=== PATIENT | female | born 1945 | race Caucasian/White ===

== ENCOUNTER → 2017-11-12 | Outpatient (CLI) | payer MEDICARE, OTHER ==
--- NOTE | 2017-11-12 10:58 | FL ---
EXAMINATION TYPE: FL barium swallow DATE OF EXAM: 11/12/2017 CLINICAL HISTORY: History of esophageal surgery for gastroesophageal reflux, possible Sheila fundopli cation, in 2001. Recurrence of burning sensation and choking sensation. TECHNIQUE: A single contrast esophagram is performed utilizing air and barium. A total of 2 minutes of fluoroscopic time was utilized during procedure with 78 images saved. COMPARISON: None FINDINGS: The esophagus shows normal delayed motility and delayed emptying into the stomach secondary to a stricture at the gastroesophageal junction. No recurrent or residual hiatal hernia is identifie d. Stricture is moderate in degree with eventual passage of contrast despite dilation of the proxima l and midesophagus and intraesophageal moderate reflux. Tertiary contractions and blunting of the sec ondary contractions are noted on the gravity independent portion of the examination. No significant g astroesophageal reflux was seen during real time performance of this study. 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 No recurrent or residual hiatal hernia seen.
== END ==
LOC: RADFLWHC 09:11
PROVIDERS: ATTEND Surgery
DX: K21.9 Gastro-esophageal reflux disease without esophagitis (principal); Z98.890 Other specified postprocedural states
CPT/HCPCS: 74220

== ENCOUNTER → 2017-11-14 | Outpatient (CLI) | payer MEDICARE, OTHER ==
--- NOTE | 2017-11-14 14:54 | US ---
EXAMINATION TYPE: US gallbladder DATE OF EXAM: 11/14/2017 COMPARISON: NONE CLINICAL HISTORY: K80.10 Cholelithiasis w/ Chronic Cystitis. EXAM MEASUREMENTS: Liver Length: 14.1cm Gallbladder Wall: 0.2 cm CBD: 0.5 cm Right Kidney: 10.5 x 4.0 x 4.6 cm Pancreas: Tail obscured by overlying bowel gas Liver: wnl Gallbladder: wnl Evidence for sonographic Moody's sign: no CBD: wnl Right Kidney: No hydronephrosis or masses seen IMPRESSION: 1. Visualized right upper quadrant ultrasound is unremarkable
== END | disposition home or self-care (01) ==
LOC: RADUSWWP 12:01
PROVIDERS: ATTEND Surgery
DX: K80.10 Calculus of gallbladder with chronic cholecystitis without obstruction (principal)
CPT/HCPCS: 76705

== ENCOUNTER 2017-12-01 10:25 | Day surgery (SDC) | payer MEDICARE, OTHER ==
[2017-11-28 11:32] VITALS: BMI 29.4
[~2017-12-01 10:25] MED LIST: LACTATED RINGERS 1,000 ML IV SCH
[2017-12-01 11:00] VITALS: TEMP 98.1
[2017-12-01] MEDS ORDERED: LIDOCAINE 1% 20 ML VIAL (10MG/ML) FOR IV START INTRADERMA ONE (11:09)
[2017-12-01] MEDS ORDERED: LIDOCAINE 1% INJ 10MG/ML (20 ML MDV) ONE (12:22)
[2017-12-01] MEDS ORDERED: PROPOFOL 10 MG/ML 20 ML VIAL IV ONE (12:22)
--- NOTE | 2017-12-01 12:34 | P.GSHP ---
History of Present Illness H&P Date: 12/01/17 Chief Complaint: GERD This a 72-year-old female with history of GERD. Patient presents today for EGD. Past Medical History Past Medical History: GERD/Reflux, Hyperlipidemia, Hypertension Additional Past Medical History / Comment(s): intermittent dysphagia recently, woke up few times gagging & choking on acid History of Any Multi-Drug Resistant Organisms: None Reported Additional Past Surgical History / Comment(s): hiatal hernia repair, cervical fusion Past Anesthesia/Blood Transfusion Reactions: No Reported Reaction Smoking Status: Never smoker - Past Family History Sister(s) Family Medical History: Cancer Medications and Allergies Home Medications Medication Instructions Recorded Confirmed Type Losartan-Hctz 50-12.5 mg [Hyzaar 1 each PO DAILY 11/28/17 12/01/17 History 50-12.5] Omeprazole [PriLOSEC] 20 mg PO AC-BRKFST 11/28/17 11/28/17 History Ranitidine HCl [Zantac] 150 mg PO HS 11/28/17 11/28/17 History Simvastatin [Zocor] 20 mg PO HS 11/28/17 11/28/17 History Allergies Allergy/AdvReac Type Severity Reaction Status Date / Time No Known Allergies Allergy Verified 12/01/17 10:53 Surgical - Exam Vital Signs Temp Pulse Resp BP Pulse Ox 98.1 F 96 18 144/82 97 12/01/17 10:57 12/01/17 10:57 12/01/17 10:57 12/01/17 10:57 12/01/17 10:57 Assessment and Plan Assessment: GERD. We'll perform EGD.
--- NOTE | 2017-12-01 12:42 | P.OP ---
Date of Procedure: 12/01/17 Preoperative Diagnosis: GERD Postoperative Diagnosis: Antral gastritis Possible slipped fundoplication Mild esophagitis Procedure(s) Performed: EGD Anesthesia: MAC Surgeon: Alexander Alanis Pathology: other (Antrum, esophagus) Condition: stable Disposition: PACU Description of Procedure: The patient's placed on the endoscopy table lateral position. She received IV sedation. The gastroscope placed oropharynx passed in the esophagus into the stomach. Scope was then placed through the pylorus. The first and second portion of the duodenum. Scope was brought back the antrum this. Mildly inflamed. A biopsies performed. Scope was then retroflexed and the remainder of the stomach appeared normal. The patient had a previous fundoplication. The fundoplication appeared to be below the GE junction. The GE junction was at 40 cm. The distal esophagus. Minimal inflamed a biopsies performed. The proximal esophagus appeared normal. Scope withdrawn for patient.
[2017-12-01 12:47] VITALS: RESP 16
[2017-12-01 13:15] VITALS: BP 137/78; PULSE 82
== END 2017-12-01 14:16 | disposition home or self-care (01) ==
LOC: ORWHC2ENDO 10:25
PROVIDERS: ATTEND Surgery
DX: K29.50 Unspecified chronic gastritis without bleeding (principal); K22.70 Barrett's esophagus without dysplasia; K21.0 Gastro-esophageal reflux disease with esophagitis; E78.5 Hyperlipidemia, unspecified; I10 Essential (primary) hypertension; Z79.899 Other long term (current) drug therapy
CPT/HCPCS: 88305; 43239; J2001; J2704

== ENCOUNTER → 2017-12-15 | Outpatient (CLI) | payer MEDICARE, OTHER ==
[2017-12-15 11:40] LABS: Basophils % (A) 1 %; Eosinophils # (A) 0.1 k/uL (0-0.7); Eosinophils % (A) 1 %; HCT 39.7 % (34.0-46.0); HGB 12.4 gm/dL (11.4-16.0); Hypochromasia Slight; Lymphocytes # (A) 3.1 k/uL (1.0-4.8); Lymphocytes % (A) 40 %; MCH 24.6 pg (25.0-35.0); MCHC 31.3 g/dL (31.0-37.0); MCV 78.8 fL (80.0-100.0); Mean Platelet Volume 7.5; Monocytes # (A) 0.4 k/uL (0-1.0); Monocytes % (A) 5 %; Neutrophils # (A) 3.9 k/uL (1.3-7.7); Neutrophils % (A) 51 %; Platelet Count 287 k/uL (150-450); RBC 5.03 m/uL (3.80-5.40); WBC 7.7 k/uL (3.8-10.6)
== END | disposition home or self-care (01) ==
LOC: LABPAT 10:59
PROVIDERS: ATTEND Surgery
DX: Z01.812 Encounter for preprocedural laboratory examination (principal); R13.19 Other dysphagia; K21.0 Gastro-esophageal reflux disease with esophagitis; D64.9 Anemia, unspecified; F17.200 Nicotine dependence, unspecified, uncomplicated
CPT/HCPCS: 36415; 85025

== ENCOUNTER 2017-12-19 07:52 | Day surgery (SDC) | payer MEDICARE, OTHER ==
[2017-12-11 15:28] VITALS: BMI 28.1
[~2017-12-19 07:52] MED LIST changes: +DEXAMETHASONE SOD PHOSPHATE 10 MG/ML 1 ML VIAL IV ONE; +HEPARIN SODIUM,PORCINE 5,000 UNIT/ML 1 ML VIAL SQ ONE; +LIDOCAINE 1% 20 ML VIAL (10MG/ML) FOR IV START INTRADERMA PRN; +MIDAZOLAM 2 MG/2 ML VIAL IV PRN; +MORPHINE SULFATE 4 MG/ML SYRINGE IV PRN; +ONDANSETRON 4 MG/2 ML VIAL IVP ONE; +SCOPOLAMINE 1.5MG/72HR PATCH TRANSDERM ONE; +ceFAZolin IN SWFI 2 GM/20 ML SYRINGE IVP ONE
[2017-12-19] MEDS ORDERED: LACTATED RINGERS 1,000 ML IV ONE ×2 (08:27→10:27)
--- NOTE | 2017-12-19 08:47 | P.GSHP ---
History of Present Illness H&P Date: 12/19/17 Chief Complaint: GERD This a 72-year-old female referred from Dr. Murphy Jurado. MThe patient has had long-standing problems with reflux esophagitis. The patient underwent recent EGD is found have evidence of esophagitis. Patient has been well informed on the procedure of laparoscopic Sheila fundoplication. The patient is aware the risk of the conversion to the open procedure, risk of injury to the stomach, liver and spleen. The patient is also a risk of recurrent GERD and dysphagia symptoms. The patient understands there is a postoperative diet of full liquids for 2 weeks after surgery. Past Medical History Past Medical History: GERD/Reflux, Hyperlipidemia, Hypertension Additional Past Medical History / Comment(s): intermittent dysphagia recently, woke up few times gagging & choking on acid History of Any Multi-Drug Resistant Organisms: None Reported Additional Past Surgical History / Comment(s): hiatal hernia repair, cervical fusion, right breast biopsy. Past Anesthesia/Blood Transfusion Reactions: No Reported Reaction Past Psychological History: No Psychological Hx Reported Smoking Status: Never smoker Past Alcohol Use History: Rare Past Drug Use History: None Reported - Past Family History Sister(s) Family Medical History: Cancer Medications and Allergies Home Medications Medication Instructions Recorded Confirmed Type Losartan-Hctz 50-12.5 mg [Hyzaar 1 each PO QAM 11/28/17 12/11/17 History 50-12.5] Omeprazole [PriLOSEC] 20 mg PO AC-BRKFST 11/28/17 12/11/17 History Ranitidine HCl [Zantac] 150 mg PO HS 11/28/17 12/11/17 History Simvastatin [Zocor] 20 mg PO HS 11/28/17 12/11/17 History Allergies Allergy/AdvReac Type Severity Reaction Status Date / Time No Known Allergies Allergy Verified 12/11/17 15:12 Surgical - Exam Vital Signs Temp Pulse Resp BP Pulse Ox 98.0 F 79 18 142/69 97 12/19/17 08:12 12/19/17 08:12 12/19/17 08:12 12/19/17 08:12 12/19/17 08:12 - General well developed, no distress - Eyes PERRL - ENT normal pinna - Neck no masses - Respiratory normal expansion - Cardiovascular Rhythm: regular - Abdomen Abdomen: soft, non tender Assessment and Plan Assessment: GERD. We'll perform laparoscopic Sheila fundal plication.
[2017-12-19] MEDS ORDERED: ePHEDrine SULFATE/0.9% NACL/PF 50 MG/5 ML SYRINGE IV ONE (09:16)
[2017-12-19] MEDS ORDERED: SUCCINYLCHOLINE CHLORIDE 100 MG/5 ML SYR IV ONE (09:16)
[2017-12-19] MEDS ORDERED: fentaNYL (PF) 50 MCG/ML 2 ML AMP ONE (09:16)
[2017-12-19] MEDS ORDERED: LIDOCAINE 1% INJ 10MG/ML (20 ML MDV) ONE (09:16)
[2017-12-19] MEDS ORDERED: GLYCOPYRROLATE 0.2 MG/ML 2 ML VIAL ONE (09:16)
[2017-12-19] MEDS ORDERED: ROCURONIUM BROMIDE 10 MG/ML 10 ML VIAL IV ONE (09:16)
[2017-12-19] MEDS ORDERED: MIDAZOLAM 2 MG/2 ML VIAL ONE (09:16)
[2017-12-19] MEDS ORDERED: PROPOFOL 10 MG/ML 20 ML VIAL IV ONE (09:16)
[2017-12-19] MEDS ORDERED: NEOSTIGMINE 1 MG/ML 10 ML VIAL ONE (09:16)
[2017-12-19] MEDS ORDERED: BUPIVACAINE (PF) 0.25% 30 ML VIAL SQ ONE (09:38)
--- NOTE | 2017-12-19 11:25 | P.OP ---
Date of Procedure: 12/19/17 Preoperative Diagnosis: GERD Postoperative Diagnosis: Large recurrent hiatal hernia Procedure(s) Performed: Laparoscopic lysis of adhesions Laparoscopic Sheila fundal plication with mesh repair of diaphragmatic hernia Anesthesia: MAR Surgeon: Alexander Alanis Estimated Blood Loss (ml): 20 Pathology: none sent Condition: stable Disposition: PACU Description of Procedure: The patient was placed on the operating table in the supine position. She received general anesthesia. She was then placed in dorsal lithotomy position. Her abdomen was prepped and draped in the usual sterile fashion. The skin incision sites were anesthetized with 1% local Xylocaine. The skin was incised in the left periumbilical area with an 11 scalpel. Using a 5 mm blade was trocar under direct visitation the peritoneal cavity was entered. And then insufflated. After adequate insufflation the laparoscope was placed back into the peritoneal cavity. Next a 5 mm trocar was placed in the right epigastric and then the right lateral position. Another 5 mm trochars placed in the left lateral position. Another 5 mm trocar placed in the left epigastric position. And the original left periumbilical trocar was exchanged for a 10 mm trocar. The left lateral lobe liver was retracted. The patient had a large recurrent hiatal hernia. Using the Harmonic scissors the crural defect and adhesions were lysed. was dissected in the Harmonic scissors were used to dissect the hiatal hernia sac. The fundus of the stomach was completely mobilized by using the Harmonic scissors to divide short gastric vessels. The stomach was reduced into the peritoneal cavity. The crura was dissected with the Harmonic scissors. And then the crural repair was performed using 2-0 Ethibond suture. The Villanueva bio A mesh was then placed over top of the repair and secured with 2-0 Ethibond suture. Next a 58-Argentine bougie dilator was placed the patient's oral pharynx and into the esophagus into the stomach by the CHEMIST ENZYMES. The fundoplication was then performed using 2-0 Ethibond suture. A 180 fundoplication was performed. At this point the dilator was withdrawn. The stomach and esophagus were inspected there is known to any injury to the stomach or esophagus. The abdomen was irrigated there is no bleeding seen. The trochars are withdrawn. Skin was closed interrupted 3-0 Monocryl suture. Dermabond was applied. Patient tolerated procedure well and was sent to recovery in stable condition.
[2017-12-19] MEDS: D5-0.45% NACL WITH KCL 20MEQ/L 1,000 ML IV SCH ×3 (12:36→21:27)
[2017-12-19] MEDS ORDERED: MORPHINE SULFATE 4 MG/ML SYRINGE IVP PRN (15:16)
[2017-12-19] MEDS: MORPHINE SULFATE 4 MG/ML SYRINGE IVP PRN (21:26)
--- NOTE | 2017-12-19 21:29 | XR ---
EXAMINATION TYPE: XR chest 1V DATE OF EXAM: 12/19/2017 COMPARISON: UGI same day HISTORY: Assess 1 hour post contrast upper GI. TECHNIQUE: AP upright portable FINDINGS: There is moderate oral contrast opacification within a distended distal thoracic esophagus, down to the gastroesophageal junction. There is mild contrast opacification within the room day of the stomach body. There are no incidental findings. IMPRESSION: 1 HOUR POST UPPER GI ORAL CONTRAST OPACIFICATION PATTERN ABOVE.
[2017-12-20] MEDS: D5-0.45% NACL WITH KCL 20MEQ/L 1,000 ML IV SCH (05:49)
[2017-12-20] MEDS: MORPHINE SULFATE 4 MG/ML SYRINGE IVP PRN ×2 (05:49→08:57)
--- NOTE | 2017-12-20 08:11 | CONS ---
CONSULTATION DATE OF SERVICE: 12/19/2017. REASON FOR CONSULTATION: Advice regarding hypertension, hyperlipidemia requested by Dr. Alanis. HISTORY OF PRESENT ILLNESS: This 72-year-old woman with a past history hypertension, hyperlipidemia, DJD, GERD being followed by Dr. Jurado in the outpatient setting underwent a laparoscopic Sheila fundoplication with mesh repair of the diaphragmatic hernia by Dr. Alanis for GERD. There is no history of fever, rigors. No history of headache, loss of consciousness, seizures. Postoperatively the patient has complaints of pain and dysphagia. There is no history of fever, rigors or chills. PAST MEDICAL HISTORY: History of GERD, hypertension, hyperlipidemia, intermittent dysphagia. MEDICATIONS: 1. Zocor 20 mg q.h.s. 2. Zantac 150 mg daily. 3. Prilosec 20 mg. 4. Losartan hydrochlorothiazide 1 p.o. q.a.m. 5. Ione 1 p.o. q.4. 6. Colace 100 mg b.i.d. ALLERGIES: None. FAMILY HISTORY: History of cancer in the family. SOCIAL HISTORY: No history of smoking, occasional alcohol. REVIEW OF SYSTEMS: ENT: As mentioned earlier. CARDIOVASCULAR: No angina. RESPIRATORY: No cough or hemoptysis. GI: As mentioned earlier. : No dysuria. NERVOUS SYSTEM: No numbness or weakness. ALLERGY/IMMUNOLOGY: No asthma. MUSCULOSKELETAL: As mentioned earlier. HEMATOLOGY/ONCOLOGY: No history of anemia. ENDOCRINE: No history of hypothyroidism and diabetes. CONSTITUTIONAL: As mentioned earlier. DERMATOLOGY: Negative. RHEUMATOLOGY: Negative. PSYCHIATRY: As mentioned earlier. PHYSICAL EXAM: Alert, oriented x3. Pulse 81, blood pressure 120/87, respirations 16, temperature 98.9, pulse ox 98% on 2 L. HEENT: Conjunctivae normal. Oral mucosa moist. Neck is no jugular venous distention. No carotid bruit. No lymph node enlargement. CARDIOVASCULAR: S1, S2. RESPIRATORY: Breath sounds diminished in the bases. No rhonchi, no crackles. ABDOMEN: Soft, status post surgery. LEGS: No edema. NERVOUS SYSTEM: Higher functions as mentioned earlier, moves all 4 limbs, no focal motor deficits. LYMPHATICS: No lymphadenopathy in the neck, axillae, groin. SKIN: No ulcer, rash or bleeding. LABS: CBC and BMP within normal limits which is done preop. LDL is 111. ASSESSMENT: 1. Status post laparoscopic Sheila fundoplication with mesh repair of diaphragmatic hernia for gastroesophageal reflux disease. 2. History of hypertension. 3. History of hyperlipidemia. 4. History of gastroesophageal reflux disease. 5. History of hiatal hernia repair. RECOMMENDATIONS AND DISCUSSION: This 72-year-old woman who presented with multiple medical issues, at this time I recommend blood pressure has been to be fairly monitored and maintained at this time. I recommend incentive spirometry, DVT prophylaxis. I would also resume the p.o. medications once the patient is p.o. Otherwise we will follow the patient closely and the patient will be asked to follow with Dr. Jurado closely after discharge. Thank you, Dr. Alanis, for letting us participate in the care of this patient. PETER / AUSTINN: [id number] /
[2017-12-20] MEDS: ENOXAPARIN 40 MG/0.4 ML SYRINGE SQ SCH (08:57)
--- NOTE | 2017-12-20 10:33 | P.PN ---
Progress Note - Text Progress Note Date: 12/20/17 The patient has some complaints of mild dysphagia. She's had poor oral intake this morning. She has complaints of shoulder pain On exam her vital signs are stable. Her abdomen soft. Status post repair of recurrent hiatal hernia. Patient had significant postoperative edema. Patient will repeat her esophagram in the a.m.
--- NOTE | 2017-12-20 15:32 | PN ---
PROGRESS NOTE DATE OF SERVICE: 12/20/2017. INTERVAL HISTORY: This 72-year-old woman who was admitted after laparoscopic Shelia fundoplication is being closely monitored. No chest pain. No palpitations. No fever. The patient is complaining of some mild dysphagia. No chest pain. No palpitations. No fever. EXAM: Alert, oriented x3. Pulse 79, blood pressure 136/69, respirations 17, temperature 98 degrees, pulse ox 98% on room air. HEENT: Conjunctivae normal. NECK: No JVD. CARDIOVASCULAR: S1 and S2 muffled. LUNGS: Breath sounds diminished at the bases. No rhonchi, no crackles. ABDOMEN: Soft, status post surgery. EXTREMITIES: Legs no edema. LABS: Not available. ASSESSMENT: 1. Status post laparoscopic Sheila fundoplication with mesh repair of diaphragmatic hernia for gastroesophageal reflux disease. 2. History of hypertension. 3. History of hyperlipidemia. 4. History of gastroesophageal reflux disease. 5. History of hiatal hernia repair. RECOMMENDATIONS: Recommend to continue current medications and symptomatic treatment. Incentive spirometry. DVT prophylaxis. Closely follow with surgery. Further recommendations to follow. MMODL / IJN: [id number] /
[2017-12-20] MEDS: ACETAMINOPHEN ORAL SUSP 160 MG/5 ML CUP PO PRN (17:44)
[2017-12-21] MEDS: D5-0.45% NACL WITH KCL 20MEQ/L 1,000 ML IV SCH (00:30)
[2017-12-21] MEDS: ACETAMINOPHEN ORAL SUSP 160 MG/5 ML CUP PO PRN (06:43)
[2017-12-21] MEDS: ENOXAPARIN 40 MG/0.4 ML SYRINGE SQ SCH (09:39)
--- NOTE | 2017-12-21 11:12 | P.PN ---
Progress Note - Text Progress Note Date: 12/21/17 The patient feels better today. Her abdominal and shoulder pain has improved. She is tolerating clear liquids overnight. She denies any nausea or vomiting. On exam her vital signs stable. Her abdomen soft. Patiently discharged home today. We plan on a another esophagram to evaluate her postoperative edema. She'll be discharged home and follow-up in 2 weeks.
--- NOTE | 2017-12-21 11:13 | P.DS ---
Providers Date of admission: 12/19/2017 Expected date of discharge: 12/21/17 Attending physician: Alexander Alanis Consults: 12/19/17 11:21 Consult Physician Routine Consulting Provider: Juanpablo Cook Consult Reason/Comments: Medical coverage from Dr. Jurado Do you want consulting provider notified?: Yes Primary care physician: Murphy Jurado [facility] Hospital Course: This is a 72-year-old female who underwent laparoscopic repair of recurrent hiatal hernia. Please see chart for details. Procedures: Laparoscopic recurrent hiatal hernia Patient Condition at Discharge: Good Plan - Discharge Summary Discharge Rx Participant: No New Discharge Prescriptions: New Docusate [Colace] 100 mg PO BID #20 capsule HYDROcodone/APAP 7.5-325MG [Lyford 7.5] 1 each PO Q4H PRN #30 tab PRN Reason: Pain No Action Simvastatin [Zocor] 20 mg PO HS Ranitidine HCl [Zantac] 150 mg PO HS Losartan-Hctz 50-12.5 mg [Hyzaar 50-12.5] 1 each PO QAM Omeprazole [PriLOSEC] 20 mg PO AC-BRKFST Discharge Medication List Losartan-Hctz 50-12.5 mg [Hyzaar 50-12.5] 1 each PO QAM 11/28/17 [History] Omeprazole [PriLOSEC] 20 mg PO AC-BRKFST 11/28/17 [History] Ranitidine HCl [Zantac] 150 mg PO HS 11/28/17 [History] Simvastatin [Zocor] 20 mg PO HS 11/28/17 [History] Docusate [Colace] 100 mg PO BID #20 capsule 12/19/17 [Rx] HYDROcodone/APAP 7.5-325MG [Lyford 7.5] 1 each PO Q4H PRN #30 tab 12/19/17 [Rx] Follow up Appointment(s)/Referral(s): Alexander Alanis MD [STAFF PHYSICIAN] - 2 Weeks
[2017-12-21 12:17] VITALS: BP 161/84; PULSE 79; RESP 18; TEMP 98.1
[2017-12-21] MEDS ORDERED: LOSARTAN-HCTZ 50-12.5 MG 1 EACH TAB PO SCH (12:45)
--- NOTE | 2017-12-21 13:12 | PN ---
PROGRESS NOTE DATE OF SERVICE: 12/21/2017. INTERVAL HISTORY: This 72-year-old woman was admitted after laparoscopic Sheila fundoplication is being closely monitored. No chest pain. No palpitations. No fever. Blood pressure slightly elevated. EXAM: Alert and oriented x3. Pulse 79, blood pressure 161/84, respiration 18, temperature 98.1, pulse ox 94% on room air. HEENT: Conjunctivae normal. NECK: No jugular venous distention. CARDIOVASCULAR: S1, S2 muffled. RESPIRATORY: Breath sounds diminished at the bases. No rhonchi, no crackles. ABDOMEN: Soft, status post surgery. LEGS: No edema. NERVOUS SYSTEM: No focal deficits. LABS: Not available. ASSESSMENT: 1. Status post laparoscopic Sheila fundoplication with mesh repair of diaphragmatic hernia for gastroesophageal reflux disease. 2. History hypertension. 3. Hyperlipidemia. 4. History of gastroesophageal reflux disease. 5. History of hiatal hernia repair. RECOMMENDATION AND DISCUSSION: I recommend to continue current management and symptomatic treatment. At this time I recommend resume the Hyzaar and closely monitor. Closely follow with Dr. Murphy Jurado. The rest of the recommendations per Surgery. MMODL / IJN: [id number] /
--- NOTE | 2017-12-21 14:53 | FL ---
EXAMINATION TYPE: FL UGI w esophagus DATE OF EXAM: 12/19/2017 COMPARISON: NONE HISTORY: Post Sheila fundoplication. TECHNIQUE: A single contrast UGI study is performed. MIN 43SEC FLUORO, 25 CC OMNI 350 UTILIZED. 5 fl uoroscopic images were saved. FINDINGS: The patient swallowed contrast without difficulty. Esophageal peristalsis and motility ar e within normal limits. There is absent flow of contrast along the diaphragmatic hiatus into the stom ach despite prolonged examination time and administration of water, there is no evidence of contrast extravasation to suggest leak. No persistent hiatal hernia is seen. IMPRESSION: Severe stenosis at the gastroesophageal junction with absent flow contrast through the ga stroesophageal junction may relate to postoperative edema. No evidence of leak.
== END 2017-12-21 13:14 | disposition home or self-care (01) ==
LOC: OR 07:52 → 6PED 10:52 → OR 12-21 13:14
PROVIDERS: ATTEND Surgery
DX: K21.9 Gastro-esophageal reflux disease without esophagitis (principal); K44.9 Diaphragmatic hernia without obstruction or gangrene; E78.5 Hyperlipidemia, unspecified; I10 Essential (primary) hypertension; M19.90 Unspecified osteoarthritis, unspecified site; Z79.899 Other long term (current) drug therapy
CPT/HCPCS: 43280; 94760; 74240; 71045; C1781; J2250; J2270 ×2; J1644; J1100; J2710; Q9967; J2405; J2001; J1650 ×2; J3010; J0330; J2704; J0690; 86850; 86900; 86901; 93005

== ENCOUNTER → 2018-05-11 | Outpatient (CLI) | payer MEDICARE, OTHER ==
--- NOTE | 2018-05-11 18:02 | FL ---
EXAMINATION: Double contrast upper GI examination DATE OF EXAM: 05/11/2018 CLINICAL INDICATION: 72-year-old female with GERD, history of Sheila fundoplication 4 months ago. COMPARISON: 12/19/2017 Total Fluoroscopy Time: 2 minutes 14 seconds. Total images: 43 FINDINGS: The swallowing mechanism is normal and hypopharyngeal anatomy is preserved. The cervical and thoracic portions have a normal course and caliber and normal motility. The mucosa is normal and no persistent filling defect is encountered. There is a small sliding hiatal hernia. No Sheila wrap is clearly identified. There is severe spontaneous gastroesophageal reflux when the patient is brought supine. The amount or reflux dilates the esophagus and extends to the thoracic inlet. Limited distention of the stomach as the patient had trouble containing the air contrast. There is so me retained ingested debris within the stomach as the patient was brought back for further imaging of the stomach. No large filling defect is identified. There is suggestion of mild diffuse fold thicken ing. The first and second portions of the duodenum are visualized and appear within normal limits. IMPRESSION: 1. Small sliding hiatal hernia. The Sheila wrap is not clearly identified. 2. Severe spontaneous gastroesophageal reflux when the patient is brought supine. 3. Limited distention of the stomach limits its evaluation. No large filling defect is seen. There is suggestion of mild diffuse fold thickening that could represent chronic gastritis.
== END | disposition home or self-care (01) ==
LOC: RADFLWHC 08:30
PROVIDERS: ATTEND Surgery
DX: K21.9 Gastro-esophageal reflux disease without esophagitis (principal); K44.9 Diaphragmatic hernia without obstruction or gangrene
CPT/HCPCS: 74246

== ENCOUNTER 2018-05-12 07:23 | Day surgery (SDC) | payer MEDICARE, OTHER ==
[2018-05-07 15:44] VITALS: BMI 28.1
[~2018-05-12 07:23] MED LIST changes: -DEXAMETHASONE SOD PHOSPHATE 10 MG/ML 1 ML VIAL IV ONE; -HEPARIN SODIUM,PORCINE 5,000 UNIT/ML 1 ML VIAL SQ ONE; -LIDOCAINE 1% 20 ML VIAL (10MG/ML) FOR IV START INTRADERMA PRN; -MIDAZOLAM 2 MG/2 ML VIAL IV PRN; -MORPHINE SULFATE 4 MG/ML SYRINGE IV PRN; -ONDANSETRON 4 MG/2 ML VIAL IVP ONE; -SCOPOLAMINE 1.5MG/72HR PATCH TRANSDERM ONE; -ceFAZolin IN SWFI 2 GM/20 ML SYRINGE IVP ONE
[2018-05-12] MEDS ORDERED: LIDOCAINE 1% 20 ML VIAL (10MG/ML) FOR IV START INTRADERMA ONE (07:56)
[2018-05-12 08:00] VITALS: TEMP 98.2
[2018-05-12] MEDS ORDERED: PROPOFOL 10 MG/ML 20 ML VIAL IV ONE (08:46)
[2018-05-12] MEDS ORDERED: GLYCOPYRROLATE 0.2 MG/ML 2 ML VIAL ONE (08:46)
[2018-05-12] MEDS ORDERED: LIDOCAINE 1% INJ 10MG/ML (20 ML MDV) ONE (08:46)
--- NOTE | 2018-05-12 08:54 | P.GSHP ---
History of Present Illness H&P Date: 05/12/18 Chief Complaint: GERD, screening colonoscopy This a 72-year-old female who presents today for EGD and screening colonoscopy. Patient's had issues with GERD. Her recent esophagram shows evidence of a recurrent sliding hiatal hernia and evidence of reflux on esophagram. Past Medical History Past Medical History: GERD/Reflux, Hyperlipidemia, Hypertension Additional Past Medical History / Comment(s): HX Intermittent dysphagia, woke up few times gagging & choking on acid - HAD LAP SAPPHIRE 12/2017, SYMPTOMS REOCCURRING WITHIN 1 MO. History of Any Multi-Drug Resistant Organisms: None Reported Past Surgical History: Breast Surgery, Hernia Repair Additional Past Surgical History / Comment(s): hiatal hernia repair 2001, Cervical Fusion, Right breast biopsy. EGD, COLONOSCOPY. LAP SAPPHIRE W/ MESH REPAIR DIAPHRAGMATIC HERNIA 12/2017. Past Anesthesia/Blood Transfusion Reactions: No Reported Reaction Smoking Status: Never smoker - Past Family History Sister(s) Family Medical History: Cancer Medications and Allergies Home Medications Medication Instructions Recorded Confirmed Type Losartan-Hctz 50-12.5 mg [Hyzaar 1 each PO QAM 11/28/17 05/12/18 History 50-12.5] Omeprazole [PriLOSEC] 20 mg PO AC-BRKFST 11/28/17 05/12/18 History Ranitidine HCl [Zantac] 150 mg PO HS 11/28/17 05/12/18 History Simvastatin [Zocor] 20 mg PO HS 11/28/17 05/12/18 History Aspirin [Adult Low Dose Aspirin EC] 81 mg PO DAILY 05/07/18 05/12/18 History Iron 47.5 mg PO AUGUSTIN 05/07/18 05/12/18 History Allergies Allergy/AdvReac Type Severity Reaction Status Date / Time No Known Allergies Allergy Verified 05/07/18 15:18 Surgical - Exam Vital Signs Temp Pulse Resp BP Pulse Ox 98.2 F 91 16 113/72 94 L 05/12/18 07:59 05/12/18 07:59 05/12/18 07:59 05/12/18 07:59 05/12/18 07:59 - General well developed, no distress - Eyes PERRL - ENT normal pinna - Neck no masses - Respiratory normal expansion - Cardiovascular Rhythm: regular - Abdomen Abdomen: soft, non tender Assessment and Plan Assessment: GERD. We'll perform EGD. We'll also perform screening colonoscopy.
[2018-05-12] MEDS ORDERED: IV FLUID CONTINUATION 1,000 ML IV ONE (09:08)
--- NOTE | 2018-05-12 09:09 | P.OP ---
Date of Procedure: 05/12/18 Preoperative Diagnosis: GERD Screening colonoscopy Postoperative Diagnosis: Normal colon Antral gastritis Small sliding hiatal hernia Procedure(s) Performed: EGD Colonoscopy Anesthesia: MAC Surgeon: Alexander Alanis Pathology: none sent (Antrum) Condition: stable Disposition: PACU Description of Procedure: The patient's placed on the endoscopy table in the lateral position. She received IV sedation. Digital rectal exam was performed which revealed no abnormalities. Flexible colonoscope was then placed patient anus passed throughout the entire colon. The ileocecal valve was visualized. There was a large amount of liquid barium in the colon which limited the view of the close. The cecum, ascending and transverse colon appeared normal. Scope was brought back in the descending and sigmoid colon this appeared normal. Scope was withdrawn for patient. Next the gastroscope placed oropharynx and passed in the esophagus and into the stomach. Scope was then placed through the pylorus. The first and second portion of the duodenum appeared normal. Scope was then brought back the antrum and this appeared mildly inflamed. A biopsies performed. The scope was then retroflexed and the remainder of the stomach appeared normal. There was a small sliding hiatal hernia. The GE junction was at 37 cm. The distal esophagus appeared normal. The proximal esophagus appeared normal. Scope was withdrawn for patient.
[2018-05-12 09:26] VITALS: BP 127/72; PULSE 75; RESP 18
== END 2018-05-12 09:40 | disposition home or self-care (01) ==
LOC: ORWHC2ENDO 07:23
PROVIDERS: ATTEND Surgery
DX: Z12.11 Encounter for screening for malignant neoplasm of colon (principal); K21.9 Gastro-esophageal reflux disease without esophagitis; K29.50 Unspecified chronic gastritis without bleeding; K44.9 Diaphragmatic hernia without obstruction or gangrene; I10 Essential (primary) hypertension; E78.5 Hyperlipidemia, unspecified; Z79.82 Long term (current) use of aspirin; Z79.899 Other long term (current) drug therapy; Z98.1 Arthrodesis status; Z80.9 Family history of malignant neoplasm, unspecified
CPT/HCPCS: 43239; 88305; G0121; J2001; J2704

== ENCOUNTER → 2018-11-10 | Outpatient (CLI) | payer MEDICARE, OTHER ==
--- NOTE | 2018-11-10 14:44 | XR ---
EXAMINATION TYPE: XR chest 2V DATE OF EXAM: 11/10/2018 COMPARISON: 12/19/2017 INDICATION: Left chest wall pain TECHNIQUE: Frontal and lateral views of the chest are obtained. FINDINGS: The heart size is normal. The pulmonary vasculature is normal. The lungs are clear. Subtle scoliosis thoracic spine with convexity to the right midportion. IMPRESSION: 1. No acute pulmonary process.
== END | disposition home or self-care (01) ==
LOC: RADXRMAIN 09:19
PROVIDERS: ATTEND Family Medicine
DX: R07.89 Other chest pain (principal)
CPT/HCPCS: 71046

== ENCOUNTER → 2020-11-27 | Outpatient (CLI) | payer MEDICARE, OTHER ==
[2020-11-27 11:45] LABS: Anisocytosis Slight; HCT 35.8 % (34.0-46.0); HGB 10.9 gm/dL (11.4-16.0); Hypochromasia Marked; MCHC 30.4 g/dL (31.0-37.0); MCV 75.8 fL (80.0-100.0); Mean Platelet Volume 6.9; Microcytosis Slight; Platelet Count 251 k/uL (150-450); RBC 4.72 m/uL (3.80-5.40); RDW 17.3 % (11.5-15.5); WBC 7.9 k/uL (3.8-10.6)
[2020-11-27 11:53] LABS: African American GFR (CKD) >90 (>60 ml/min/1.73 sqM); Anion Gap 8 mmol/L; Blood Urea Nitrogen 14 mg/dL (7-17); Carbon Dioxide 26 mmol/L (22-30); Chloride 104 mmol/L (98-107); Non-African American GFR(CKD) 85 (>60 ml/min/1.73 sqM); Sodium 138 mmol/L (137-145)
[2020-11-27 11:54] LABS: Potassium 3.8 mmol/L (3.5-5.1)
== END | disposition home or self-care (01) ==
LOC: LABPAT 10:38
PROVIDERS: ATTEND Internal Medicine Interventional Cardiology
DX: Z01.818 Encounter for other preprocedural examination (principal); R07.9 Chest pain, unspecified
CPT/HCPCS: 36415; 80051; 82565; 84520; 85027

== ENCOUNTER 2020-12-11 07:56 | Day surgery (SDC) | payer MEDICARE, OTHER ==
[2020-12-04 16:16] VITALS: BMI 27.3
[~2020-12-11 07:56] MED LIST changes: +ALPRAZolam 0.25 MG TAB PO PRN; +ALPRAZolam 0.5 MG TAB PO PRN; +ASPIRIN 325 MG TAB PO ONE; +ATORVASTATIN 80 MG TAB PO ONE; -LACTATED RINGERS 1,000 ML IV SCH; +NITROGLYCERIN SL TABS 0.4 MG TAB SUBLINGUAL PRN; +SODIUM CHLORIDE 0.9% 1,000 ML in EMPTY BAG 1 BAG IV ONE
[2020-12-11] MEDS ORDERED: SODIUM CHLORIDE 0.9% 1,000 ML IV ONE (08:24)
[2020-12-11 08:25] VITALS: TEMP 97.1
[2020-12-11] MEDS ORDERED: VERAPAMIL 2.5 MG/ML 2 ML AMP ONE (08:36)
[2020-12-11] MEDS ORDERED: LIDOCAINE 1% INJ 10MG/ML (20 ML MDV) ONE (08:36)
[2020-12-11] MEDS ORDERED: HEPARIN SODIUM 1,000 UN/ML (10ML VL) ONE (08:50)
[2020-12-11] MEDS ORDERED: fentaNYL (PF) 50 MCG/ML 2 ML AMP ONE (08:50)
[2020-12-11] MEDS ORDERED: fentaNYL (PF) 50 MCG/ML 2 ML AMP IVP ONE (09:09)
[2020-12-11] MEDS ORDERED: LIDOCAINE 1% INJ 10MG/ML (20 ML MDV) SQ ONE (09:12)
[2020-12-11] MEDS ORDERED: VERAPAMIL SYRINGE (5 MG/10 ML) INTRAARTER ONE (09:13)
[2020-12-11] MEDS ORDERED: HEPARIN SODIUM 1,000 UN/ML (10ML VL) IV ONE (09:17)
[2020-12-11] MEDS ORDERED: IOPAMIDOL-370 125ML BTL INJ ONE (09:23)
[2020-12-11] MEDS ORDERED: RX INFO: IV CONTRAST WAS GIVEN 1 EACH MISC MISCELLANE PRN (09:37)
[2020-12-11 09:44] VITALS: RESP 16
[2020-12-11] MEDS ORDERED: SODIUM CHLORIDE 0.9% 1,000 ML IV SCH (09:45)
--- NOTE | 2020-12-11 10:45 | CC ---
CARDIAC CATHETERIZATION REPORT Mrs. Dempsey is a 75-year-old female with known history of hypertension and hyperlipidemia who has been complaining of exertional chest discomfort and dyspnea on exertion. She underwent a myocardial perfusion imaging that revealed no evidence of inducible ischemia, but persisted to having discomfort that increased in frequency. In view of that, recommendation was made regarding cardiac catheterization. The procedures, risks, and complication were discussed with the patient who is in full understanding and agreement. PROCEDURE: Patient was brought to the collaborative teacher in the fasting semi-sedated state after receiving fentanyl and Benadryl and achieving moderate conscious sedated state. Using Xylocaine anesthesia and Seldinger technique, a 6-Irish sheath was introduced in the right radial artery. Selective right and left coronary angiography performed using 5-Irish 3.5 bend right and left Crescencio catheter. Multiple views of the coronary artery including hemiaxial views were obtained. Following that, 5-Irish tight pigtail catheter was introduced in the left ventricle and pressures were calculated. Following that, catheter and sheath were removed. Hemostasis was obtained with deployment of a TR band. There was no immediate complication. Patient was returned to her room in stable condition. Of note, the patient received 4000 units of intravenous heparin as well as intra- arterial verapamil. FINDINGS: LEFT MAIN: This is a large-sized vessel. Trifurcating left circumflex, left anterior descending artery and ramus intermedius. Left main coronary artery has no evidence of high-grade stenosis. LEFT ANTERIOR DESCENDING ARTERY: This vessel tapers down on the distal third. It gives rise to a large size diagonal branch. The left anterior descending artery has mild plaque proximally 10% to 20%. The rest of the vessel has no high-grade stenosis. RAMUS INTERMEDIUS: This is a large size vessel reaching to the apical lateral wall. The ramus intermedius has no evidence of high-grade stenosis. LEFT CIRCUMFLEX: This is a nondominant vessel giving rise to a large obtuse marginal branch. The left circumflex as well as branches have no evidence of obstructive coronary artery disease. RIGHT CORONARY ARTERY: This is a large dominant vessel bifurcating distally PDA and posterolateral segment and branches. The right PDA reaches to the inferoapical wall. The right coronary artery in mid segment has a 10% plaque. The rest of the vessel has no high-grade stenosis. LEFT VENTRICULOGRAM: Left ventriculogram was not performed. HEMODYNAMICS: There was no gradient across the aortic valve. The left end-diastolic pressure was 14- 16 mmHg. CONCLUSION: 1. Mild plaque in the proximal left anterior descending artery and right coronary artery. 2. Right dominance. RECOMMENDATION: In view of finding anatomy, I recommend continue medical therapy with aggressive coronary risk modifications being initiated. Those findings and recommendations were discussed with the patient and her family who are in full understanding and agreement. Duration of sedation is 14 minutes. MMODL / IJN: [id number] /
--- NOTE | 2020-12-11 10:51 | LTR ---
December 11, 2020 Re: Génesis Dempsey Dear Dr. Jurado: I had the opportunity to perform cardiac catheterization on Mrs. Dempsey at [facility] on the 11 of December and a full copy of the procedure note will be forwarded to you. In brief, she was found to have mild intimal disease in the proximal LAD and mid right coronary artery without any evidence of high-grade stenosis and based on those findings, I recommend to continue medical therapy with the aggressive coronary risk modifications being initiated. Thank you again for allowing me the opportunity to participate in her care. Please feel free to call for any questions. Sincerely yours, MD PETER Brito / [place]IN[place]: [id number] /
[2020-12-11 13:10] VITALS: BP 109/57; PULSE 60
[2020-12-11] MEDS ORDERED: PANTOPRAZOLE 40 MG TABLET PO SCH (18:30)
[2020-12-11] MEDS ORDERED: ATORVASTATIN 10 MG TAB PO SCH (21:00)
[2020-12-12] MEDS ORDERED: LOSARTAN-HCTZ 50-12.5 MG 1 EACH TAB PO SCH (09:00)
[2020-12-12] MEDS ORDERED: ISOSORBIDE MONONITRATE ER 15 MG TAB PO SCH (09:00)
[2020-12-12] MEDS ORDERED: ASPIRIN 81 MG PO SCH (09:00)
== END 2020-12-11 13:58 | disposition home or self-care (01) ==
LOC: CATHCVL 07:56
PROVIDERS: ATTEND Internal Medicine Interventional Cardiology
DX: I25.110 Atherosclerotic heart disease of native coronary artery with unstable angina pectoris (principal); I10 Essential (primary) hypertension; E78.00 Pure hypercholesterolemia, unspecified; E78.2 Mixed hyperlipidemia
CPT/HCPCS: 93458; C1769; C1894; J2001; J3010; J1644; Q9967

== ENCOUNTER 2020-12-28 08:33 | Day surgery (SDC) | payer MEDICARE, OTHER ==
[2020-12-26 11:17] VITALS: BMI 27.3
[~2020-12-28 08:33] MED LIST changes: -ALPRAZolam 0.25 MG TAB PO PRN; -ALPRAZolam 0.5 MG TAB PO PRN; -ASPIRIN 325 MG TAB PO ONE; -ATORVASTATIN 80 MG TAB PO ONE; +LACTATED RINGERS 1,000 ML IV SCH; +LIDOCAINE 1% (10MG/ML) FOR IV START INTRADERMA PRN; -NITROGLYCERIN SL TABS 0.4 MG TAB SUBLINGUAL PRN; -SODIUM CHLORIDE 0.9% 1,000 ML in EMPTY BAG 1 BAG IV ONE
[2020-12-28 09:32] VITALS: TEMP 97.8
[2020-12-28] MEDS ORDERED: PROPOFOL 10 MG/ML 20 ML VIAL IV ONE (09:58)
--- NOTE | 2020-12-28 10:00 | P.GSHP ---
History of Present Illness H&P Date: 12/28/20 Chief Complaint: Rectal bleeding This is a 75-year-old female who presents today for colonoscopy. She's had issues with rectal bleeding. Past Medical History Past Medical History: GERD/Reflux, Hyperlipidemia, Hypertension Additional Past Medical History / Comment(s): PAST HX INTERMITTENT DYSPHAGIA., HX OF HIATAL HERNIA WITH REPAIR X2, BACK PAIN., STATES RECENT BLOOD IN STOOL. History of Any Multi-Drug Resistant Organisms: None Reported Past Surgical History: Breast Surgery, Heart Catheterization, Hernia Repair Additional Past Surgical History / Comment(s): hiatal hernia repair 2001, Cervical Fusion, Right breast biopsy. EGD, COLONOSCOPY. LAP SAPPHIRE W/ MESH REPAIR DIAPHRAGMATIC HERNIA 12/2017. HEART CATH 12/11/20. Past Anesthesia/Blood Transfusion Reactions: No Reported Reaction Past Psychological History: No Psychological Hx Reported Smoking Status: Never smoker Past Alcohol Use History: Rare Past Drug Use History: None Reported - Past Family History Sister(s) Family Medical History: Cancer Additional Family Medical History / Comment(s): LUNG CANCER WITH METS Medications and Allergies Home Medications Medication Instructions Recorded Confirmed Type Losartan-Hctz 50-12.5 mg [Hyzaar 1 each PO QAM 11/28/17 12/26/20 History 50-12.5] Omeprazole [PriLOSEC] 40 mg PO PC-SUPPER 11/28/17 12/26/20 History Simvastatin [Zocor] 20 mg PO HS 11/28/17 12/26/20 History Aspirin [Adult Low Dose Aspirin EC] 81 mg PO DAILY 05/07/18 12/26/20 History Iron 25 mg PO MOWEFR 05/07/18 12/26/20 History Acetaminophen/Diphenhydramine 1 tab PO HS 12/04/20 12/26/20 History [Tylenol PM 500-25mg] Cholecalciferol [Vitamin D3 (25 25 mcg PO DAILY 12/04/20 12/26/20 History Mcg = 1000 Iu)] Melatonin 10 mg PO HS 12/04/20 12/26/20 History Allergies Allergy/AdvReac Type Severity Reaction Status Date / Time No Known Allergies Allergy Verified 12/26/20 10:56 Surgical - Exam Vital Signs Temp Pulse Resp BP Pulse Ox 97.8 F 87 18 163/68 97 12/28/20 09:29 12/28/20 09:29 12/28/20 09:29 12/28/20 09:29 12/28/20 09:29 - General well developed, well nourished, no distress - Eyes PERRL - ENT normal pinna - Neck no masses - Respiratory normal expansion - Cardiovascular Rhythm: regular - Abdomen Abdomen: soft, non tender Assessment and Plan Assessment: Rectal bleeding. We'll perform colonoscopy.
[2020-12-28] MEDS ORDERED: LACTATED RINGERS 1,000 ML IV ONE (10:09)
--- NOTE | 2020-12-28 10:11 | P.OP ---
Date of Procedure: 12/28/20 Preoperative Diagnosis: Rectal bleeding Postoperative Diagnosis: Internal and external hemorrhoids Severe diverticulosis Procedure(s) Performed: Colonoscopy Anesthesia: MAC Surgeon: Alexander Alanis Pathology: none sent Condition: stable Disposition: PACU Description of Procedure: The patient's placed on the endoscopy table in the lateral position. She received IV sedation. Digital rectal exam was performed which revealed internal/external hemorrhoids. The flexible colonoscope was then placed patient anus passed throughout the entire colon. The ileocecal valve was visualized. The cecum, ascending and transverse colon appeared normal. In the descending and; there is extensive diverticular changes. There was severe diverticulosis of the sigmoid colon. There is no unsteady bleeding in the colon. Scope was brought back the rectum this appeared normal. Scope withdrawn and internal and external hemorrhoids visualized. This presumed patient appears rectal bleeding was either from hemorrhoids or diverticulosis
[2020-12-28 10:28] VITALS: BP 124/64; PULSE 77; RESP 17
== END 2020-12-28 10:51 | disposition home or self-care (01) ==
LOC: ORWHC2ENDO 08:33
PROVIDERS: ATTEND Surgery
DX: K64.8 Other hemorrhoids (principal); K64.4 Residual hemorrhoidal skin tags; K62.5 Hemorrhage of anus and rectum; K57.30 Diverticulosis of large intestine without perforation or abscess without bleeding; E78.5 Hyperlipidemia, unspecified; E11.9 Type 2 diabetes mellitus without complications; F17.200 Nicotine dependence, unspecified, uncomplicated; Z79.84 Long term (current) use of oral hypoglycemic drugs; Z79.82 Long term (current) use of aspirin; Z79.899 Other long term (current) drug therapy; Z88.5 Allergy status to narcotic agent; Z88.8 Allergy status to other drugs, medicaments and biological substances
CPT/HCPCS: 45378; J2704

== ENCOUNTER → 2022-11-07 | Outpatient (CLI) | payer MEDICARE ==
--- NOTE | 2022-11-08 08:26 | MM ---
Reason for Exam: Screening (asymptomatic). Last mammogram was performed 9 year(s) and 9 month(s) ago. Patient History: Menarche at age 15. Patient has no children. Postmenopausal. Excisional Biopsy on the Right side. Risk Values: Jana 5 year model risk: 2.1%. NCI Lifetime model risk: 3.7%. Prior Study Comparison: 04/21/2002 Bilateral Screening Mammogram, [facility]. 06/16/2003 Bilateral Screening Mammogram, [facility]. 02/03/2013 Bilateral Screening Mammogram, [facility]. Tissue Density: The breast tissue is extremely dense which could obscure a lesion on mammography. Findings: Analyzed By CAD. Nodularity seen lower inner quadrants bilaterally. Additional views are recommended. Scattered punctate calcifications noted bilaterally. Overall Assessment: Incomplete: need additional imaging evaluation, BI-RAD 0 Management: Diagnostic Mammogram of both breasts. A clinical breast exam by your physician is recommended on an annual basis and results should be correlated with mammographic findings. Electronically signed and approved by: Jaya Osei M.D. Radiologis
== END | disposition home or self-care (01) ==
LOC: RADMAMWWP 10:49
PROVIDERS: ATTEND Family Medicine
DX: Z12.31 Encounter for screening mammogram for malignant neoplasm of breast (principal); Z78.0 Asymptomatic menopausal state; Z98.890 Other specified postprocedural states
CPT/HCPCS: 77063; 77067

== ENCOUNTER → 2023-11-14 | Outpatient (CLI) | payer MEDICARE ==
--- NOTE | 2023-11-17 19:23 | MM ---
Reason for Exam: Screening (asymptomatic). Last screening mammogram was performed 12 month(s) ago. Patient History: Menarche at age 15. Patient has no children. Postmenopausal. Excisional Biopsy on the Right side. Risk Values: Jana 5 year model risk: 2.0%. NCI Lifetime model risk: 3.4%. Prior Study Comparison: 02/03/2013 Bilateral Screening Mammogram, [facility]. 11/07/2022 Bilateral MG 3D screening mammo w/cad, [facility]. 11/13/2022 Bilateral MG 3D work up w/cad [facility]ON, [facility]. Tissue Density: The breast tissue is heterogeneously dense. This may lower the sensitivity of mammography. Findings: Analyzed By CAD. Chronic bilateral nodularity. Unchanged oil cyst calcification on the right. Bilateral regional punctate calcifications also remain unchanged. There is no suspicious group of microcalcifications or new suspicious mass in either breast. Overall Assessment: Benign, BI-RAD 2 Management: Screening Mammogram of both breasts in 1 year. . Patient should continue monthly self-breast exams. A clinical breast exam by your physician is recommended on an annual basis. This exam should not preclude additional follow-up of suspicious palpable abnormalities. Note on Jana scores and lifetime risk: 1. A Jana score greater than 3% is considered moderate risk. If this is the case, consider specialist referral to assess eligibility for a risk reducing agent. 2. If overall lifetime risk for the development of breast cancer is 20% or higher, the patient may qualify for future screening with alternating mammogram and breast MRI. Electronically signed and approved by: Amy Matt M.D. Radiologist
== END | disposition home or self-care (01) ==
LOC: RADMAMWWP 10:31
PROVIDERS: ATTEND Family Medicine
DX: Z12.31 Encounter for screening mammogram for malignant neoplasm of breast (principal); Z78.0 Asymptomatic menopausal state; Z80.3 Family history of malignant neoplasm of breast
CPT/HCPCS: 77063; 77067

== ENCOUNTER 2024-09-05 08:34 | Emergency (ER) | payer MEDICARE ==
[2024-09-05 08:41] VITALS: TEMP 97.6
[2024-09-05] MEDS: SODIUM CHLORIDE 0.9% 1,000 ML IV ONE (09:05)
--- NOTE | 2024-09-05 09:10 | ED ---
URI HPI - General Chief Complaint: Upper Respiratory Infection Stated Complaint: Congestion Time Seen by Provider: 09/05/24 08:40 Source: patient, RN notes reviewed Mode of arrival: ambulatory Limitations: no limitations - History of Present Illness Initial Comments: 79-year-old female presents emergency department chief complaint of cough and congestion x 1 week. Patient states started last Friday with mild sore throat and nasal congestion states has progressed throughout the week. She states that she has productive cough, states she has sinus pressure. Patient reports no fever denies any sick contacts denies any GI symptoms denies chest pain no dizziness no neck pain or neck stiffness. - Related Data Home Medications Medication Instructions Recorded Confirmed Losartan-Hctz 50-12.5 mg [Hyzaar 1 each PO QAM 11/28/17 12/26/20 50-12.5] Omeprazole [PriLOSEC] 40 mg PO PC-SUPPER 11/28/17 12/26/20 Simvastatin [Zocor] 20 mg PO HS 11/28/17 12/26/20 Aspirin [Adult Low Dose Aspirin EC] 81 mg PO DAILY 05/07/18 12/26/20 Iron 25 mg PO MOWEFR 05/07/18 12/26/20 Acetaminophen/Diphenhydramine 1 tab PO HS 12/04/20 12/26/20 [Tylenol PM 500-25mg] Cholecalciferol [Vitamin D3 (25 25 mcg PO DAILY 12/04/20 12/26/20 Mcg = 1000 Iu)] Melatonin [Melatonin Tr] 10 mg PO HS 12/04/20 12/26/20 Previous Rx's Medication Instructions Recorded Amoxic-Pot Clav 875-125Mg 1 tab PO Q12HR #20 tab 09/05/24 [Augmentin 875-125] Allergies Allergy/AdvReac Type Severity Reaction Status Date / Time No Known Allergies Allergy Verified 09/05/24 08:36 Review of Systems ROS Statement: Those systems with pertinent positive or pertinent negative responses have been documented in the HPI. ROS Other: All systems not noted in ROS Statement are negative. Past Medical History Past Medical History: GERD/Reflux, GI Bleed, Hyperlipidemia, Hypertension Additional Past Medical History / Comment(s): PAST HX INTERMITTENT DYSPHAGIA., HX OF HIATAL HERNIA WITH REPAIR X2, BACK PAIN., STATES RECENT BLOOD IN STOOL. History of Any Multi-Drug Resistant Organisms: None Reported Past Surgical History: Breast Surgery, Heart Catheterization, Hernia Repair Additional Past Surgical History / Comment(s): hiatal hernia repair 2002, Cervical Fusion, Right breast biopsy. EGD, COLONOSCOPY. LAP SAPPHIRE W/ MESH REPAIR DIAPHRAGMATIC HERNIA 12/2017. HEART CATH 12/11/20. Past Anesthesia/Blood Transfusion Reactions: No Reported Reaction Past Psychological History: No Psychological Hx Reported Smoking Status: Never smoker Past Alcohol Use History: Rare Past Drug Use History: None Reported - Past Family History Sister(s) Family Medical History: Cancer Additional Family Medical History / Comment(s): LUNG CANCER WITH METS General Exam Limitations: no limitations General appearance: alert, in no apparent distress Head exam: Present: atraumatic, normocephalic, normal inspection Eye exam: Present: normal appearance, PERRL, EOMI. Absent: scleral icterus, conjunctival injection, periorbital swelling ENT exam: Present: mucous membranes moist. Absent: normal exam, normal oropharynx (post Drainage) Neck exam: Present: normal inspection, full ROM. Absent: tenderness, meningismus, lymphadenopathy Respiratory exam: Present: normal lung sounds bilaterally. Absent: respiratory distress, wheezes, rales, rhonchi, stridor Cardiovascular Exam: Present: regular rate, normal rhythm, normal heart sounds. Absent: systolic murmur, diastolic murmur, rubs, gallop, clicks GI/Abdominal exam: Present: soft, normal bowel sounds. Absent: distended, tenderness, guarding, rebound, rigid Neurological exam: Present: alert, oriented X3, CN II-XII intact, reflexes normal. Absent: motor sensory deficit Skin exam: Present: warm, dry, intact, normal color. Absent: rash Course Vital Signs 09/05/24 09/05/24 08:36 10:02 Temperature 97.6 F Pulse Rate 119 H 87 Respiratory 22 18 Rate Blood Pressure 162/89 169/80 O2 Sat by Pulse 98 98 Oximetry Medical Decision Making - Medical Decision Making Was pt. sent in by a medical professional or institution (, PA, ELECTRICAL TECHNICIAN INSTRUCTOR, urgent care, hospital, or correction...) When possible be specific @ -No Did you speak to anyone other than the patient for history (EMS, parent, family, police, friend...)? What history was obtained from this source @ -No Did you review nursing and triage notes (agree or disagree)? Why? @ -I reviewed and agree with nursing and triage notes Were old charts reviewed (outside hosp., previous admission, EMS record, old EKG, old radiological studies, urgent care reports/EKG's, correction records)? Report findings @ -No old charts were reviewed Differential Diagnosis (chest pain, altered mental status, abdominal pain women, abdominal pain men, vaginal bleeding, weakness, fever, dyspnea, syncope, headache, dizziness, GI bleed, back pain, seizure, CVA, palpatations, mental health, musculoskeletal)? @ -COVID 19, RSV, influenza, pneumonia, acute bronchitis, URI, this list is not all inclusive EKG interpreted by me (3pts min.). @ -none X-rays interpreted by me (1pt min.). @ -Chest x-ray shows no definite infiltrate there is peribronchial changes noted CT interpreted by me (1pt min.). @ -None done U/S interpreted by me (1pt. min.). @ -None done What testing was considered but not performed or refused? (CT, X-rays, U/S, labs)? Why? @ -None What meds were considered but not given or refused? Why? @ -None Did you discuss the management of the patient with other professionals (professionals i.e. , PA, ELECTRICAL TECHNICIAN INSTRUCTOR, lab, RT, psych nurse, geriatric social worker, feather separator, teacher, chemistry technical officer, supervisor case loading)? Give summary @ -No Was smoking cessation discussed for >3mins.? @ -No Was critical care preformed (if so, how long)? @ -No Were there social determinants of health that impacted care today? How? (Homelessness, low income, unemployed, alcoholism, drug addiction, transporta tion, low edu. Level, literacy, decrease access to med. care, [facility], rehab)? @ -No Was there de-escalation of care discussed even if they declined (Discuss DNR or withdrawal of care, Hospice)? DNR status @ -No What co-morbidities impacted this encounter? (DM, HTN, Smoking, COPD, CAD, Cancer, CVA, ARF, Chemo, Hep., AIDS, mental health diagnosis, sleep apnea, morbid obesity)? @ -None Was patient admitted / discharged? Hospital course, mention meds given and route, prescriptions, significant lab abnormalities, going to OR and other pertinent info. @ -Discharge patient presented for URI symptoms x 1 week. Patient has acute tracheobronchitis. Patient treated with Augmentin. Patient was given Rocephin. She has no hypoxia tachycardia is improved after IV fluids. Return transfer discussed. Undiagnosed new problem with uncertain prognosis? @ -No Drug Therapy requiring intensive monitoring for toxicity (Heparin, Nitro, Insulin, Cardizem)? @ -No Were any procedures done? @ -No Diagnosis/symptom? @ -Acute tracheobronchitis Acute, or Chronic, or Acute on Chronic? @ -Acute Uncomplicated (without systemic symptoms) or Complicated (systemic symptoms)? @ -Uncomplicated Side effects of treatment? @ -No Exacerbation, Progression, or Severe Exacerbation? @ -No Poses a threat to life or bodily function? How? (Chest pain, USA, HI, pneumonia, PE, COPD, DKA, ARF, appy, cholecystitis, CVA, Diverticulitis, Homicidal, Suicidal, threat to staff... and all critical care pts) @ -No - Lab Data Result diagrams: 09/05/24 09:02 09/05/24 09:02 Lab Results 09/05/24 09/05/24 09/05/24 Range/Units 09:02 09:02 09:02 WBC 16.6 H (3.8-10.6) k/uL RBC 4.90 (3.80-5.40) m/uL Hgb 13.2 (11.4-16.0) gm/dL Hct 42.5 (34.0-46.0) % MCV 86.8 (80.0-100.0) fL MCH 27.0 (25.0-35.0) pg MCHC 31.1 (31.0-37.0) g/dL RDW 14.2 (11.5-15.5) % Plt Count 347 (150-450) k/uL MPV 7.3 Neutrophils % 74 % Lymphocytes % 20 % Monocytes % 4 % Eosinophils % 1 % Basophils % 0 % Neutrophils # 12.2 H (1.3-7.7) k/uL Lymphocytes # 3.3 (1.0-4.8) k/uL Monocytes # 0.6 (0-1.0) k/uL Eosinophils # 0.2 (0-0.7) k/uL Basophils # 0.1 (0-0.2) k/uL Hypochromasia Slight Sodium 135 L (137-145) mmol/L Potassium 4.6 (3.5-5.1) mmol/L Chloride 105 (98-107) mmol/L Carbon Dioxide 22 (22-30) mmol/L Anion Gap 8 mmol/L BUN 8 (7-17) mg/dL Creatinine 0.68 (0.52-1.04) mg/dL Est GFR (CKD-EPI)AfAm >90 (>60 ml/min/1.73 sqM) Est GFR (CKD-EPI)NonAf 83 (>60 ml/min/1.73 sqM) Glucose 112 H (74-99) mg/dL Calcium 9.0 (8.4-10.2) mg/dL Total Bilirubin 1.0 (0.2-1.3) mg/dL AST 35 (14-36) U/L ALT 15 (4-34) U/L Alkaline Phosphatase 109 (38-126) U/L Total Protein 7.3 (6.3-8.2) g/dL Albumin 4.0 (3.5-5.0) g/dL Influenza Type A (PCR) Not Detected (Not Detectd) Influenza Type B (PCR) Not Detected (Not Detectd) RSV (PCR) Not Detected (Not Detectd) SARS-CoV-2 (PCR) Not Detected (Not Detectd) Disposition Clinical Impression: Tracheobronchitis Disposition: HOME SELF-CARE Condition: Stable Instructions (If sedation given, give patient instructions): Upper Respiratory Infection (ED) Additional Instructions: Please return to the Emergency Department if symptoms worsen or any other concerns. Prescriptions: Amoxic-Pot Clav 875-125Mg [Augmentin 875-125] 1 tab PO Q12HR #20 tab Is patient prescribed a controlled substance at d/c from ED?: No Referrals: Murphy Jurado DO [Primary Care Provider] - 1-2 days Time of Disposition: 10:09
[2024-09-05 09:12] LABS: Basophils # (A) 0.1 k/uL (0-0.2); Basophils % (A) 0 %; Eosinophils # (A) 0.2 k/uL (0-0.7); Eosinophils % (A) 1 %; HCT 42.5 % (34.0-46.0); HGB 13.2 gm/dL (11.4-16.0); Hypochromasia Slight; Lymphocytes # (A) 3.3 k/uL (1.0-4.8); Lymphocytes % (A) 20 %; MCHC 31.1 g/dL (31.0-37.0); MCV 86.8 fL (80.0-100.0); Mean Platelet Volume 7.3; Monocytes # (A) 0.6 k/uL (0-1.0); Monocytes % (A) 4 %; Neutrophils # (A) 12.2 k/uL (1.3-7.7); Neutrophils % (A) 74 %; Platelet Count 347 k/uL (150-450); RDW 14.2 % (11.5-15.5); WBC 16.6 k/uL (3.8-10.6)
[2024-09-05 09:24] LABS: ALT 15 U/L (4-34); African American GFR (CKD) >90 (>60 ml/min/1.73 sqM); Anion Gap 8 mmol/L; Blood Urea Nitrogen 8 mg/dL (7-17); Carbon Dioxide 22 mmol/L (22-30); Chloride 105 mmol/L (98-107); Glucose 112 mg/dL (74-99); Non-African American GFR(CKD) 83 (>60 ml/min/1.73 sqM); Sodium 135 mmol/L (137-145); Total Protein 7.3 g/dL (6.3-8.2)
--- NOTE | 2024-09-05 09:36 | XR ---
2 view chest HISTORY: Chest pain COMPARISON: 11/10/2018. TECHNIQUE: PA and lateral views chest obtained. FINDINGS: The lungs are clear of consolidative, interstitial or masslike opacity. There is no pleural effusion, pleural thickening or pneumothorax. The heart, pulmonary vasculature, mediastinum and patrick are within normal limits. The osseous structures and soft tissues of the thorax are intact. IMPRESSION: No significant abnormality. No acute cardiopulmonary disease. [facility], Workstation: OWEN 09/05/2024 9:33 AM
[2024-09-05 09:38] LABS: AST 35 U/L (14-36); Alkaline Phosphatase 109 U/L (38-126); Potassium 4.6 mmol/L (3.5-5.1)
[2024-09-05 10:03] VITALS: BP 169/80; PULSE 87; RESP 18
[2024-09-05] MEDS: cefTRIAXone IN SWFI 1,000 MG/10 ML SYRINGE IVP STA (10:27)
== END 2024-09-05 10:36 | disposition home or self-care (01) ==
LOC: EC 08:34
DX: J40 Bronchitis, not specified as acute or chronic (principal)
CPT/HCPCS: 99284; 96374; 96361; 36415; 80053; 85025; 87636; 71046; J0696

== ENCOUNTER → 2025-04-06 | Outpatient (CLI) | payer MEDICARE ==
--- NOTE | 2025-04-06 13:13 | BD ---
EXAMINATION TYPE: Axial Bone Density DATE OF EXAM: 04/06/2025 CLINICAL HISTORY: 79 years old Female. ICD-10 CODE: Z78.0 POST MENOPAUSAL , Additional History: Height: 5 ft 7 in Weight: 166 FRAX RISK QUESTIONS: Alcohol (3 or more units per day): no Family History (Parent hip fracture): no Glucocorticoids (More than 3mos): no (Ex: prednisone, prednisolone, methylprednisolone, dexamethasone, and hydrocortisone). History of Fracture in Adulthood:no Secondary Osteoporosis: 1. Type 1 Diabetes: no 2. Hyperthyroidism: no 3. Menopause before 45: no 4. Malnutrition: no 5. Chronic liver disease: no Rheumatoid Arthritis: no Current Tobacco Use: no RISK FACTORS HISTORY OF: Surgery to Spine/Hip(right/left)/Wrist (right/left): cerv metal When: 25 years ago MEDICATIONS: Thyroid Medications: none Osteoporosis Medications: none EXAM MEASUREMENTS: Bone mineral densitometry was performed using the Clip System. Bone mineral density as measured about the Lumbar spine is: ----- L1-L4(G/cm2): 1.042 T Score Values are as follows: ----- L1: -2.1 ----- L2: -2.6 ----- L3: 0.3 ----- L4: -0.1 ----- L1-L4: -1.1 Z Score Values are as follows: ----- L1: -0.6 ----- L2: -1.1 ----- L3: 1.8 ----- L4: 1.4 ----- L1-L4: 0.4 prev done elsewhere Bone mineral density about the R hip (g/cm2): 0.733 Bone mineral density about the L hip (g/cm2): 0.760 T Score values are as follows: -----R Neck: -2.2 -----L Neck: -2.0 -----R Total: -1.4 -----L Total: -1.2 Z Score values are as follows: -----R Neck: -0.2 -----L Neck: 0.0 -----R Total: 0.4 -----L Total: 0.6 prev done elsewhere FRAX%s: The graph provided illustrates a 17.2 % chance for a major osteoporotic fx and a 5.6 % chance for the hips probability for fx in 10 years time. IMPRESSION: Osteopenia (T Score between -2.5 and -1). There is slightly increased risk of fracture and the patient may be considered for treatment. Re-Screen 2-5 years. NOTE: T-SCORE=SD OF THE YOUNG ADULT MEAN. [facility], , 04/06/2025 1:10 PM
--- NOTE | 2025-04-06 15:29 | MM ---
Reason for Exam: Screening (asymptomatic). Last mammogram was performed 1 year(s) and 5 month(s) ago. Patient History: Menarche at age 15. Patient has no children. Postmenopausal. Excisional Biopsy on the Right side. Risk Values: Jana 5 year model risk: 2.0%. NCI Lifetime model risk: 3.0%. Prior Study Comparison: 11/07/2022 Bilateral MG 3D screening mammo w/cad, [facility]. 11/13/2022 Bilateral MG 3D work up w/cad [facility], [facility]. 11/14/2023 Bilateral MG 3D screening mammo w/cad, [facility]. Tissue Density: The breasts are heterogeneously dense, which may obscure small masses. Findings: Analyzed By CAD. Chronic bilateral nodularity. Benign oil cyst calcification posterior 12:00 right breast. Diffuse punctate calcifications are unchanged. There is no suspicious group of microcalcifications or new suspicious mass in either breast. Overall Assessment: Benign, BI-RAD 2 Management: Screening Mammogram of both breasts in 1 year. Patient should continue monthly self-breast exams. A clinical breast exam by your physician is recommended on an annual basis. This exam should not preclude additional follow-up of suspicious palpable abnormalities. Note on Jana scores and lifetime risk: 1. A Jana score greater than 3% is considered moderate risk. If this is the case, consider specialist referral to assess eligibility for a risk reducing agent. 2. If overall lifetime risk for the development of breast cancer is 20% or higher, the patient may qualify for future screening with alternating mammogram and breast MRI. [facility], , 04/06/2025 3:26 PM. Electronically signed and approved by: Aym Matt M.D. Radiologist
== END | disposition home or self-care (01) ==
LOC: RADMAMWWP 12:09
PROVIDERS: ATTEND Family Medicine
DX: Z12.31 Encounter for screening mammogram for malignant neoplasm of breast (principal); R92.333 Mammographic heterogeneous density, bilateral breasts; M85.89 Other specified disorders of bone density and structure, multiple sites; Z78.0 Asymptomatic menopausal state
CPT/HCPCS: 77063; 77067; 77080